=== PATIENT | female | born 1995 | race Caucasian/White ===

== ENCOUNTER 2021-07-11 19:28 | Emergency (ER) | payer OTHER ==
[~2021-07-11] VITALS: Ht 170.2 cm; Wt 67.1 kg
[~2021-07-11 19:28] MED LIST: ADVIL ALLERGY S1 TAB; BACTRIM DS TAB1 EACH PO; MAPAP500 MG PO; PYRIDIUM200 MG PO
[2021-07-11] MEDS ORDERED: ZITHROMAX500 MG PO (20:51)
== END 2021-07-11 21:04 | disposition home or self-care (01) ==
LOC: ER 19:28
DX: U07.1 COVID-19 (principal)

== ENCOUNTER → 2023-09-10 | Outpatient (CLI) | payer OTHER ==
[~2023-09-10] MED LIST changes: +ZITHROMAX500 MG PO
== END | disposition home or self-care (01) ==
LOC: PRENATAL 07:55
PROVIDERS: ATTEND Obstetrics & Gynecology Maternal & Fetal Medicine
DX: O35.9XX0 Maternal care for (suspected) fetal abnormality and damage, unspecified, not applicable or unspecified (principal); O35.3XX0 Maternal care for (suspected) damage to fetus from viral disease in mother, not applicable or unspecified; O44.02 Complete placenta previa NOS or without hemorrhage, second trimester; Z3A.20 20 weeks gestation of pregnancy

== ENCOUNTER → 2023-12-03 08:59 | Outpatient (CLI) | payer OTHER | END | disposition home or self-care (01) | LOC: PRENATAL 08:59 | PROVIDERS: ATTEND Obstetrics & Gynecology Maternal & Fetal Medicine | DX: O26.849 Uterine size-date discrepancy, unspecified trimester (principal); O36.8199 Decreased fetal movements, unspecified trimester, other fetus; Z3A.32 32 weeks gestation of pregnancy ==

== ENCOUNTER 2024-01-10 07:23 | Inpatient (IN) | payer OTHER ==
[~2024-01-10] VITALS: Ht 167.6 cm; Wt 79.8 kg
[2024-01-10] VITALS (7 sets, daily range): BP systolic 106–137; BP diastolic 58–70
[2024-01-10 08:20] LABS: URINE APPEARANCE Clear; URINE BILIRRUBIN Negative (NEGATIVE); URINE BLOOD Negative; URINE COLOR Yellow; URINE GLUCOSE Negative (NEGATIVE); URINE KETONE Negative (NEGATIVE); URINE LEUKOCYTE Trace; URINE NITRATE Negative; URINE PROTEIN Negative (NEGATIVE); URINE UROBILINOGEN 0.2 E.U./dl
[2024-01-10 08:23] LABS: HEMATOCRIT 33.7 % (36.0-45.00); MEAN CELL VOLUME 87.9 fL (80.00-100.00); MEAN CORPUSCULAR HEMOGLOBIN 31.4 pg (27.00-32.0); MEAN CORPUSCULAR HGB CONC 35.8 g/dl (32.0-36.0); PLATELET COUNT 234 K/uL (150-450); RED BLOOD COUNT 3.83 M/uL (4.00-6.00); RED CELL DISTRIBUTION WIDTH 14.8 % (11.5-14.5)
[2024-01-10 08:24] LABS: URINE BACTERIA 578.2 uL (0.0-1933); URINE EPITHELIAL CELLS 10.1 uL (0.0-38.8); URINE RBC 14.6 uL (0.0-20.8); URINE WBC 27.6 uL (0.0-23.2)
[2024-01-10 08:29] LABS: URINE CAST 0.15 uL (0.0-1.40)
[2024-01-10] MEDS ORDERED: OXYTOCIN 500 ML IV SCH (08:30)
[2024-01-10 08:42] LABS: INR 0.94; PARTIAL THROMBOPLASTIN TIME 27.9 SECONDS (22.0-34.0); PROTHROMBIN TIME 10.3 SECONDS (9.0-11.5)
[2024-01-10] MEDS ORDERED: AMPICILLIN SODIUM 2,000 MG VIAL IV SCH (09:30)
[2024-01-10] MEDS ORDERED: RINGERS SOLUTION,LACTATED 1,000 ML IV SCH (09:30)
[2024-01-10 09:43] LABS: ALBUMIN 3.1 gm/dL (3.4-5.0); BILIRUBIN TOTAL 1.16 mg/dL (0.3-1.2); CALCIUM 8.3 mg/dL (8.5-10.1); CREATININE SERUM 0.52 mg/dL (0.55-1.02); GFR 139.41; GLOBULINA 3.4 G/DL (2.4-3.5); POTASSIUM 4.15 mEq/L (3.5-5.1); TOTAL PROTEIN 6.5 gm/dL (6.4-8.2)
[2024-01-10] MEDS ORDERED: PROMETHAZINE HCL 25 MG/ML AMPUL IV ONE (10:30)
[2024-01-10] MEDS ORDERED: MEPERIDINE HCL/PF 50 MG/ML VIAL IV ONE (10:30)
[2024-01-10] MEDS ORDERED: IBUprofen 400 MG TABLET PO PRN (16:00)
[2024-01-10] MEDS ORDERED: OXYTOCIN 1,000 ML IV SCH (16:00)
[2024-01-10] MEDS ORDERED: CHLORHEXIDINE GLUCONATE 120 ML BOTTLE TP SCH (16:00)
[2024-01-10] MEDS ORDERED: ACETAMINOPHEN 500 MG GEL..CAP PO PRN (16:15)
[2024-01-10] MEDS ORDERED: BENZOCAINE/MENTHOL 90 ML BOTTLE TOP SCH (18:00)
[2024-01-11] VITALS: BP 114/66
[2024-01-11 09:54] VITALS: BP 130/64
[2024-01-11 17:11] VITALS: BP 138/67
[2024-01-12] VITALS: BP 114/65
[2024-01-12 08:52] VITALS: BP 124/70
[2024-01-12] MEDS ORDERED: NAPR500T14 PO (12:45)
== END 2024-01-12 14:42 | disposition home or self-care (01) | DRG 807 ==
LOC: LDR 07:23 → OB/GYN 18:27
PROVIDERS: ADMIT Obstetrics & Gynecology; ATTEND Obstetrics & Gynecology
PROC: 10E0XZZ Delivery of Products of Conception, External Approach (ICD-10-PCS; principal; 2024-01-10)
PROC: 0KQM0ZZ Repair Perineum Muscle, Open Approach (ICD-10-PCS; 2024-01-10)
PROC: 4A1HXCZ Monitoring of Products of Conception, Cardiac Rate, External Approach (ICD-10-PCS; 2024-01-10)
DX: O70.1 Second degree perineal laceration during delivery (principal); O69.81X0 Labor and delivery complicated by cord around neck, without compression, not applicable or unspecified; Z37.0 Single live birth; Z3A.37 37 weeks gestation of pregnancy; Z20.822 Contact with and (suspected) exposure to COVID-19